=== PATIENT | female | born 2000 | race Caucasian/White ===

== ENCOUNTER → 2025-03-04 16:36 | Outpatient (REF) | payer OTHER, SELFPAY ==
[2025-03-04 17:01] LABS: Hematocrit 42.0 % (37.0-47.0); Hemoglobin 13.7 g/dL (12.0-16.0); Mean Corp Hgb Conc. 32.6 g/dL (33.0-37.0); Mean Corpuscular Volume 83.7 fL (81.0-99.0); Nucleated Red Blood Cells % 0 %; Platelet Count 407 10^3/uL (130-400); Red Cell Dist. Width 12.7 % (11.5-14.5)
[2025-03-04 17:12] LABS: D-Dimer 0.48 ug/mlFEU (0.00-0.50)
== END ==
LOC: REG 16:36
PROVIDERS: ATTENDING PHYSICIAN Family Medicine
DX: R42 Dizziness and giddiness (principal); R06.02 Shortness of breath; R55 Syncope and collapse
CPT/HCPCS: 36415; 85025; 85379

== ENCOUNTER 2025-03-26 08:48 | Emergency (ER) | payer OTHER, SELFPAY ==
[2025-03-26 08:53] VITALS: BP 130/96
[2025-03-26 09:19] VITALS: BMI 22.5
--- NOTE | 2025-03-26 09:20 | EDRN ---
Without refraction- could only read the top line at 5 feet
--- NOTE | 2025-03-26 09:21 | EDRN ---
Pt unable to see or identify any letters at 10 feet. At 5 feet she could read the top line
[2025-03-26] MEDS: GENOPTIC 0.3% EYE DROPS 1 DROP OPHTH (10:04)
--- NOTE | 2025-03-26 10:13 | ED.SKININJ ---
HPI-Injury
General
Chief Complaint: Eye Problems
Source: patient
Exam Limitations: none
Time Seen by Provider: 03/26/25 09:08
Nursing documentation reviewed up to this point in time: agreed with
History of Present Illness-Injury
Initial Injury comments:
24-year-old female presents with left eye irritation and mild redness after wearing her contacts for 6 hours yesterday, she noticed mild redness of the left eye when she looked in the mirror . She removed her contacts, used Visine and when she
went to bed she slept well, when she woke up the eye was still a little red and a little tender, 'throbbing a little bit.' She denies change in vision. She denies headache. Denies pain in the eyeball
Past History
Past History
ED Past Medical History: None
ED Past Surgical History: Tonsilectomy
Social History
Tobacco: Non-smoker
Alcohol: None
Drug: None
Personal: Single
Living: with family
Employment: Employed
Review of Systems
Review of Systems
Allergies reviewed?: Yes
All Other Systems: ROS reviewed and negative except as documented in HPI and ROS
Phy Exam
Physical Exam
Physical Exam:
PHYSICAL EXAMINATION:
General: no apparent distress, not acutely ill
Neuro: alert and oriented.
Psychiatric: well kept. interactive and cooperative
Musculoskeletal: Moves with ease
Skin: Warm, pink.
Eye Exam
Eye Exam: PERRL, EOMI, disc sharp, globe normal and other (without contacts able to read top line of chart only at 10 feet, has glasses at home. L eye mildly injected. Non tender to palpation. Eye lids normal)
Cornea Exam: abrasion: Left (superficial round abrasion in shape of contact lens over 80% of fermin)
Type of Exam: slit lamp, simple and fluorescein
Course
Orders/Labs/Results
Orders:
Orders
03/26/25 09:08
Visual Acuity- Treatment ONCE
03/26/25 09:48
Gentamicin [Genoptic 0.3% Eye Drops] See Dose Instructions OPHTH NOW STA
03/26/25 10:00
Tetracaine HCl [Tetracaine 0.5% Ophthalmic Solution] 1 drop .ROUTE .STK-MED ONE
Vital Signs
Initial and Last Documented VS:
Initial Vital Signs
Temp Pulse Resp BP Pulse Ox
97.9 F 91 18 130/96 97
03/26/25 08:53 03/26/25 08:53 03/26/25 08:53 03/26/25 08:53 03/26/25 08:53
Last Documented Vital Signs
Temp Pulse Resp BP Pulse Ox
97.9 F 91 18 130/96 97
03/26/25 08:53 03/26/25 08:53 03/26/25 08:53 03/26/25 08:53 03/26/25 10:23
MDM/Problems Addressed
Differential Diagnosis Includes:
Corneal abrasion, iritis, conjunctivitis, keratitis, irritation from contacts
MDM/Problems Addressed:
24-year-old female presents with left eye irritation and mild redness after wearing her contacts for 6 hours yesterday, she noticed mild redness of the left eye when she looked in the mirror . She removed her contacts, used Visine and when she
went to bed she slept well, when she woke up the eye was still a little red and a little tender, 'throbbing a little bit.' She denies change in vision. She denies headache. Denies pain in the eyeball. Mild photophobia
Describes symptoms as irritating but not painful. Skin stain reveals a superficial [place] shape abrasion in the shape of her contact
She can only read top line of chart without her contacts. Has glasses at home.
Referred to her ophthalmologis Dr. Morales at [facility].
*Pulse Oximetry
SaO2: 97
Oxygen Mode of Delivery: Room air
Patient hypoxic: not evaluated
*Critical Care Note
Total Time (30-74mins, 75-104mins- exclusive of procedures): Not Applicable
ED Attending Note
-
Portions of this chart may have been created with voice recognition software.� Occasional wrong word or��sound alike� substitutions may have occurred due to the inherent limitations of voice recognition software.
Discharge Plan
Departure
Patient Disposition: Home (Routine Discharge)
Date of Disposition: 03/26/25
Time of Disposition: 10:12
Patient with high blood pressure during this ER visit?: No
Condition: Good
Discharge Problem:
Abrasion of left cornea
Instructions: Corneal Abrasion (DC), How to Use Eye Drops
Prescriptions:
No Action
multivitamin 1 EACH tablet
1 ea PO DAILY
norgestimate-ethinyl estradiol [Sprintec (28)] 1 TAB tablet
1 tab PO DAILY
nitrofurantoin macrocrystal 25 MG capsule
50 mg PO DAILY
L.acidoph,paracasei,B.animalis 1 EACH capsule
1 ea PO DAILY
acetaminophen [Tylenol] 325 MG capsule
650 mg PO PRN PRN (Reason: pain/headache)
Referrals:
Michelle Senior MD [Family Provider, Family Practice]
Checo Maradiaga MD [[facility]] - Tomorrow
Activity Restrictions/Additional Instructions:
As we discussed, call your eye doctor tomorrow and make a follow-up appointment.
It looks like you have a mild corneal abrasion in the shape of your contact lens.
No contact lens wear until further instructed by your eye doctor.
Use the gentamicin eyedrops as follows: 1 to 2 drops in affected eye 3-4 times a day for the next 5 days
cool compress, Tylenol or ibuprofen as needed discomfort
Interventions
Interventions:
*General Assessment Last Done: 03/26/25 09:19
*Neglect/Abuse Screening Last Done: 03/26/25 09:19
*ED COVID-19 Vaccine History Last Done: 03/26/25 08:53
*ED Influenza Vaccine History Last Done: 03/26/25 08:53
[facility] Fall Risk Assessment Tool Last Done: 03/26/25 09:20
*Risk Screen - Suicide (C-SSRS) Last Done: 03/26/25 08:53
*Nursing Disposition Last Done: 03/26/25 10:24
Discharge Date and Time
Discharge Date/Time: 03/26/25 10:24
Print Language: GIBRALTARIAN
== END 2025-03-26 10:24 | disposition home or self-care (01) ==
LOC: EMR 08:48
PROVIDERS: EMERGENCY PHYSICIAN Emergency Medicine; FAMILY PHYSICIAN Family Medicine
DX: S05.02XA Injury of conjunctiva and corneal abrasion without foreign body, left eye, initial encounter (principal); X58.XXXA Exposure to other specified factors, initial encounter
CPT/HCPCS: 99283